=== PATIENT | male | born 1935 | race Caucasian/White ===

== ENCOUNTER 2017-05-10 16:53 | Inpatient (IN) | payer OTHER, MEDICARE ==
[2017-05-10] VITALS (10 sets, daily range): BP systolic 119–169; BP diastolic 50–81; PULSE 64–80; RESP 22–30; TEMP 98–99.1; O2SAT 94–95
[~2017-05-10] VITALS: Ht 172.7 cm; Wt 119.5 kg
[2017-05-10] MEDS ORDERED: SODIUM CHLORIDE 0.9% FLUSH 10 ML FLUSH IVF PRN (18:00)
[2017-05-10] MEDS ORDERED: methylPREDNISolone SOD SUCC 125 MG/2 ML VIAL IVP ONE (18:00)
[2017-05-10] MEDS: RESP: ALBUTEROL 2.5 MG/3 ML NEB (SCH) INH (18:10)
[2017-05-10 18:23] LABS: CHLORIDE 101 MEQ/L (98-107); POTASSIUM 3.3 MEQ/L (3.5-5.1); SODIUM (NA) 136 MEQ/L (136-145)
--- NOTE | 2017-05-10 18:23 | RADRPT ---
EXAM DATE/TIME: 05/10/2017 18:08 [facility] COMPARISON: No previous studies available for comparison. INDICATIONS : Shortness of breath. MEDICAL HISTORY : Diabetes mellitus type II. SURGICAL HISTORY : None. ENCOUNTER: Initial ACUITY: 2 days PAIN SCORE: 0/10 LOCATION: Bilateral cranial FINDINGS: A single AP erect portable view of the chest was obtained and demonstrate streaky perihilar and bibas ilar opacities no focal consolidation or effusion. The heart size is within normal limits. There are atherosclerotic changes in the aorta. Multiple overlying electrocardiogram leads are noted. The bony thorax is intact. CONCLUSION: Streaky opacity in both lungs with no consolidation. The chronicity of the finding is not known. The differential diagnosis includes scarring and fibrosis. Pulmonary edema is less likely . Timbo Cox MD on May 10, 2017 at 18:21 Board Certified Radiologist. This report was verified electronically.
[2017-05-10 18:24] LABS: AUTOMATED NEUTROPHIL # 9.4 TH/MM3 (1.8-7.7); BASOPHIL % 0.2 % (0.0-2.0); EOSINOPHIL # 0.2 TH/MM3 (0-0.4); EOSINOPHIL % 1.9 % (0.0-4.0); HEMATOCRIT 36.5 % (39.0-51.0); LYMPH % 9.1 % (9.0-44.0); MEAN CELL VOLUME 88.2 FL (80.0-100.0); MEAN CORPUSCULAR HEMOGLOBIN 29.4 PG (27.0-34.0); MEAN CORPUSCULAR HGB CONC 33.3 % (32.0-36.0); MONO % 6.2 % (0.0-8.0); NEUT % 82.6 % (16.0-70.0); PLATELET COUNT 302 TH/MM3 (150-450); RED BLOOD COUNT 4.14 MIL/MM3 (4.50-5.90); RED CELL DISTRIBUTION WIDTH 13.4 % (11.6-17.2); WHITE BLOOD COUNT 11.3 TH/MM3 (4.0-11.0)
[2017-05-10] MEDS ORDERED: DOXA4TAB3 PO (18:25)
[2017-05-10] MEDS ORDERED: GEMF600T PO (18:25)
[2017-05-10] MEDS ORDERED: CLAR10CA3 PO (18:25)
[2017-05-10] MEDS ORDERED: LOSA100T3 PO (18:25)
[2017-05-10] MEDS ORDERED: AMLO10TA2 PO (18:25)
[2017-05-10] MEDS ORDERED: ATEN25TA PO (18:25)
[2017-05-10] MEDS ORDERED: METF500T PO (18:25)
[2017-05-10 18:27] LABS: ANION GAP 12 MEQ/L (5-15); BICARBONATE 22.8 MEQ/L (21.0-32.0); BLOOD UREA NITROGEN 22 MG/DL (7-18); MAGNESIUM 2.2 MG/DL (1.5-2.5)
[2017-05-10 18:30] LABS: ALT (GPT) 23 U/L (12-78); AST (GOT) 27 U/L (15-37); GLOMERULAR FILTRATION RATE 79 ML/MIN (>89)
[2017-05-10] MEDS ORDERED: POTASSIUM CHLORIDE 20 MEQ CONTROLLED RELEASE TAB PO ONE (18:30)
[2017-05-10 18:31] LABS: TOTAL BILIRUBIN ADULT 0.4 MG/DL (0.2-1.0)
[2017-05-10 18:33] LABS: ALKALINE PHOSPHATASE 47 U/L (45-117)
[2017-05-10 18:37] LABS: HEMO FLAGS DIFF FINAL
[2017-05-10] MEDS ORDERED: IOHEXOL 350 MG/ML 10 ML VIAL (for RAD DIAG) IVCONTRAST ONE (19:05)
--- NOTE | 2017-05-10 19:28 | PD ---
HPI Chief Complaint: Respiratory Symptoms Time Seen by Provider: 17:40 Travel History International Travel<30 days: No Contact w/Intl Traveler<30days: No Traveled to known affect area: No History of Present Illness HPI This 81-year-old male is complaining of shortness of breath for 6 or 7 days. His been getting progressively worse. He has a dry cough. He has no history of heart disease. He stopped smoking in 2004. He had pulmonary function tests last year which showed a mild obstructive pattern. He is not aware of fever or chills. He does have a history of diabetes. He has not been having any chest pain. He noted any edema. He has not had trouble breathing before [facility] Past Medical History Diabetes: Yes Patient Takes Glucophage: Yes Diminished Hearing: Yes (BILATERAL) Hypertension: Yes Respiratory: Yes (ALLERGIES) Influenza Vaccination: No Past Surgical History Tonsillectomy: Yes Social History Alcohol Use: No Tobacco Use: No Substance Use: No Allergies-Medications (Allergen,Severity, Reaction): Coded Allergies: No Known Allergies (Verified , 05/10/17) Reported Meds & Prescriptions Reported Meds & Active Scripts Active Reported Claritin (Loratadine) 10 Mg Cap 10 Mg PO DAILY Doxazosin (Doxazosin Mesylate) 4 Mg Tab 4 Mg PO HS Amlodipine (Amlodipine Besylate) 10 Mg Tab 10 Mg PO DAILY Atenolol 25 Mg Tab 12.5 Mg PO BID Metformin (Metformin HCl) 500 Mg Tab 500 Mg PO BIDPC With meals Losartan-Hydrochlorothiazide 100-12.5 Mg Tab 1 Tab PO DAILY Gemfibrozil 600 Mg Tab 600 Mg PO BIDAC Take 30 minutes prior to breakfast and dinner. Review of Systems General / Constitutional: No: Fever, Chills Eyes: No: Diploplia, Blurred Vision HENT: No: Headaches, Vertigo Cardiovascular: No: Chest Pain or Discomfort Respiratory: Positive: Cough, Shortness of Breath Gastrointestinal: No: Nausea, Vomiting Genitourinary: No: Frequency, Dysuria Musculoskeletal: No: Myalgias, Arthralgias Skin: No Rash Endocrine: No: Heat Intolerance Hematologic/Lymphatic: No: Easy Bruising Physical Exam Narrative GENERAL: Well-developed female with dyspnea. He has grunting respirations SKIN: Focused skin assessment warm/dry. HEAD: Atraumatic. Normocephalic. EYES: Pupils equal and round. No scleral icterus. No injection or drainage. ENT: No nasal bleeding or discharge. Mucous membranes pink and moist. NECK: Trachea midline. No JVD. CARDIOVASCULAR: Regular rate and rhythm. No murmur appreciated. RESPIRATORY: accessory muscle use. He has scattered rales bilaterally. Breath sounds equal bilaterally. GASTROINTESTINAL: Abdomen soft, non-tender, nondistended. Hepatic and splenic margins not palpable. MUSCULOSKELETAL: No obvious deformities. No clubbing. No cyanosis. Trace edema. NEUROLOGICAL: Awake and alert. No obvious cranial nerve deficits. Motor grossly within normal limits. Normal speech. PSYCHIATRIC: Appropriate mood and affect; insight and judgment normal. Data Data Last Documented VS Vital Signs Date Time Temp Pulse Resp B/P (MAP) Pulse Ox O2 Delivery O2 Flow Rate FiO2 05/10/17 20:15 74 24 153/81 (105) 95 Nasal Cannula 2.00 05/10/17 19:15 98.9 Orders Orders Complete Blood Count With Diff (05/10/17 17:54) Comprehensive Metabolic Panel (05/10/17 17:54) B-Type Natriuretic Peptide (05/10/17 17:54) Magnesium (Mg) (05/10/17 17:54) Troponin I (05/10/17 17:54) Electrocardiogram (05/10/17 17:54) Chest, Single Ap (05/10/17 17:54) Sodium Chloride 0.9% Flush (Ns Flush) (05/10/17 18:00) Methylprednisolone So Succ Inj (Solumedr (05/10/17 18:00) Albuterol Neb (Albuterol Neb) (05/10/17 18:00) Potassium Chloride (Kcl) (05/10/17 18:30) Ct Pulmonary Angiogram (05/10/17 18:42) Iohexol 350 Inj (Omnipaque 350 Inj) (05/10/17 19:05) Blood Culture (05/10/17 19:29) Al-Mag Hy-Si 40-40-4 Mg/Ml Liq (Mag-Al P (05/10/17 19:45) Acetaminophen (Tylenol) (05/10/17 19:45) Labs Laboratory Tests Test 05/10/17 17:45 White Blood Count 11.3 TH/MM3 Red Blood Count 4.14 MIL/MM3 Hemoglobin 12.2 GM/DL Hematocrit 36.5 % Mean Corpuscular Volume 88.2 FL Mean Corpuscular Hemoglobin 29.4 PG Mean Corpuscular Hemoglobin Concent 33.3 % Red Cell Distribution Width 13.4 % Platelet Count 302 TH/MM3 Mean Platelet Volume 9.0 FL Neutrophils (%) (Auto) 82.6 % Lymphocytes (%) (Auto) 9.1 % Monocytes (%) (Auto) 6.2 % Eosinophils (%) (Auto) 1.9 % Basophils (%) (Auto) 0.2 % Neutrophils # (Auto) 9.4 TH/MM3 Lymphocytes # (Auto) 1.0 TH/MM3 Monocytes # (Auto) 0.7 TH/MM3 Eosinophils # (Auto) 0.2 TH/MM3 Basophils # (Auto) 0.0 TH/MM3 CBC Comment DIFF FINAL Differential Comment Blood Urea Nitrogen 22 MG/DL Creatinine 0.92 MG/DL Random Glucose 157 MG/DL Total Protein 7.3 GM/DL Albumin 3.1 GM/DL Calcium Level 9.4 MG/DL Magnesium Level 2.2 MG/DL Alkaline Phosphatase 47 U/L Aspartate Amino Transf (AST/SGOT) 27 U/L Alanine Aminotransferase (ALT/SGPT) 23 U/L Total Bilirubin 0.4 MG/DL Sodium Level 136 MEQ/L Potassium Level 3.3 MEQ/L Chloride Level 101 MEQ/L Carbon Dioxide Level 22.8 MEQ/L Anion Gap 12 MEQ/L Estimat Glomerular Filtration Rate 79 ML/MIN Troponin I LESS THAN 0.02 NG/ML B-Type Natriuretic Peptide 99 PG/ML MDM Medical Decision Making Medical Screen Exam Complete: Yes Emergency Medical Condition: Yes Medical Record Reviewed: Yes Differential Diagnosis Differential includes pneumonia, CHF, COPD Narrative Course Chest x-ray shows streaky opacity in both lungs with no consolidation. Chronicity is not known. Differential is thought to include scarring and fibrosis, pulmonary edema less likely she continued to be symptomatic with grunting respirations. He did not respond well to DuoNeb nebs and Solu-Medrol. A CTA has been ordered to assess for PE and to further define the opacity seen on the chest x-ray. CT scan shows numerous patchy areas of consolidation seen throughout both lungs which are thought to represent inflammatory/ infectious process such as bronchial pneumonia. They are nonspecific however Diagnosis Primary Impression: Pneumonia Qualified Codes: J18.9 - Pneumonia, unspecified organism Admitting Information Admitting Physician Requests: Admit Gael Morales MD May 10, 2017 19:28
[2017-05-10] MEDS ORDERED: ACETAMINOPHEN 500 MG CPLT PO ONE (19:45)
[2017-05-10] MEDS ORDERED: ALUMINUM/MAGNESIUM/SIMETH 30 ML CUP PO ONE (19:45)
--- NOTE | 2017-05-10 20:28 | RADRPT ---
EXAM DATE/TIME: 05/10/2017 18:58 [facility] COMPARISON: No previous studies available for comparison. INDICATIONS : Short of breath. IV CONTRAST: 75 cc Omnipaque 350 (iohexol) IV RADIATION DOSE: 20.29 CTDIvol (mGy) ; Patient motion MEDICAL HISTORY : Hypertension. Diabetes mellitus type 2. SURGICAL HISTORY : None. ENCOUNTER: Initial ACUITY: 2 weeks PAIN SCALE: 2/10 LOCATION: Bilateral chest TECHNIQUE: Volumetric scanning of the chest was performed using a pulmonary embolism protocol MIP images were re constructed. Using automated exposure control and adjustment of the mA and/or kV according to patien t size, radiation dose was kept as low as reasonably achievable to obtain optimal diagnostic quality images. DICOM format image data is available electronically for review and comparison. Follow-up recommendations for detected pulmonary nodules are based at a minimum on nodule size and pa tient risk factors according to Fleischner Society Guidelines. FINDINGS: No pulmonary embolus is seen. There are numerous patchy areas of consolidation seen scattered throug hout the lungs bilaterally. No significant pleural effusion is seen. There are mildly prominent lym ph nodes seen throughout the mediastinum. None of these appear to measure significantly more than 1 cm in size. There are small lymph nodes seen in the hilar regions bilaterally. Coronary artery calci fications are present. CONCLUSION: 1. No pulmonary embolus. 2. Numerous patchy areas of consolidation seen throughout both lungs. These likely represent inflamm atory /infectious processes such as bronchial pneumonia. They are nonspecific however. Serjio Arredondo MD on May 10, 2017 at 20:11 Board Certified Radiologist. This report was verified electronically.
[2017-05-10] MEDS ORDERED: cefTRIAXone INJ 1,000 MG in SODIUM CHLORIDE 0.9% INJ 100 ML IV ONE (20:45)
[2017-05-10] MEDS ORDERED: AZITHROMYCIN INJ 500 MG in SODIUM CHLOR 0.9% 250 ML INJ 250 ML IV ONE (20:45)
[2017-05-10] MEDS ORDERED: RESP: ALBUTEROL 2.5 MG/IPRATROPIUM 0.5 MG NEB (PRN) NEB (21:15)
[2017-05-10] MEDS ORDERED: NALOXONE HCL 0.4 MG/ML AMP IV PRN (21:15)
[2017-05-10] MEDS ORDERED: SODIUM CHLORIDE 0.9% FLUSH 10 ML FLUSH IV FLUSH PRN (21:15)
[2017-05-10] MEDS: RESP: ALBUTEROL 2.5 MG/IPRATROPIUM 0.5 MG NEB (SCH) NEB (22:12)
[2017-05-10] MEDS: LEVOFLOXACIN 750 MG PREMIX INJ 150 ML IV SCH (23:31)
[2017-05-11] VITALS (10 sets, daily range): BP systolic 139–168; BP diastolic 64–79; PULSE 59–78; RESP 16–22; TEMP 96.7–98.6; O2SAT 92–97
[2017-05-11] MEDS: RESP: ALBUTEROL 2.5 MG/IPRATROPIUM 0.5 MG NEB (SCH) NEB ×4 (04:53→21:09)
[2017-05-11 06:50] LABS: BASOPHIL # 0.1 TH/MM3 (0-0.2); BASOPHIL % 1.1 % (0.0-2.0); EOSINOPHIL % 0.1 % (0.0-4.0); HEMATOCRIT 36.3 % (39.0-51.0); LYMPHOCYTE # 0.8 TH/MM3 (1.0-4.8); MEAN CELL VOLUME 88.5 FL (80.0-100.0); MEAN CORPUSCULAR HEMOGLOBIN 29.4 PG (27.0-34.0); MEAN CORPUSCULAR HGB CONC 33.2 % (32.0-36.0); MONO % 2.4 % (0.0-8.0); NEUT % 88.4 % (16.0-70.0); PLATELET COUNT 246 TH/MM3 (150-450); RED CELL DISTRIBUTION WIDTH 13.3 % (11.6-17.2); WHITE BLOOD COUNT 10.1 TH/MM3 (4.0-11.0)
[2017-05-11 06:59] LABS: HEMO FLAGS DIFF FINAL
[2017-05-11 07:09] LABS: BICARBONATE 21.9 MEQ/L (21.0-32.0)
[2017-05-11] MEDS: SODIUM CHLORIDE 0.9% FLUSH 10 ML FLUSH IV FLUSH SCH ×2 (09:11→20:22)
[2017-05-11] MEDS ORDERED: NON-FORMULARY DRUG (Losartan-Hydrochlorothiazide 1 TAB) PO SCH (11:30)
[2017-05-11] MEDS ORDERED: DEXTROSE 50% IN WATER 50 ML VIAL(D50) IV PRN (11:30)
[2017-05-11] MEDS ORDERED: GLUCAGON 1 MG/ML VIAL OTHER PRN (11:30)
--- NOTE | 2017-05-11 11:35 | HHI.HP ---
[facility] Ariana Arias MD Admission Diagnosis PNEUMONIA Diagnoses: Chief Complaint: Short of breath Travel History International Travel<30 Days: No Contact w/Intl Traveler <30 Da: No Traveled to Known Affected Are: No History of Present Illness Patient is an 81-year-old former smoker with a 80 pack year history although he quit over the last 15 years. Patient has been short of breath for about a week which has gotten progressively worse. He called his primary care doctor and got a metered-dose inhaler which did not improve his symptoms. Patient has had pulmonary function tests in the past year which did show mild obstructive pattern although the patient says he is not aware of any lung problems. He has diabetes and is taking his medications. He has not had any trouble breathing or resting flat there is no swelling. Patient has been evaluated for likely pneumonia which is positive on his physical exam and on his imaging on my review. EKG is unremarkable. Patient has been admitted to the hospital for pneumonia with likely COPD exacerbation Review of Systems Constitutional: DENIES: Diaphoretic episodes, Fatigue, Fever, Weight gain, Weight loss, Chills, Dizziness, Change in appetite, Night Sweats Endocrine: DENIES: Heat/cold intolerance, Polydipsia, Polyuria, Polyphagia Eyes: DENIES: Blurred vision, Diplopia, Eye inflammation, Eye pain, Vision loss , Photosensitivity, Double Vision Ears, nose, mouth, throat: DENIES: Tinnitus, Hearing loss, Vertigo, Nasal discharge, Oral lesions, Throat pain, Hoarseness, Ear Pain, Running Nose, Epistaxis, Sinus Pain, Toothache, Odynophagia Respiratory: COMPLAINS OF: Cough, Sputum production, Shortness of breath, DENIES: Apneas, Snoring, Wheezing, Hemoptysis Cardiovascular: COMPLAINS OF: Dyspnea on Exertion, DENIES: Chest pain, Palpitations, Syncope, PND, Lower Extremity Edema, Orthopnea, Claudication Gastrointestinal: DENIES: Abdominal pain, Black stools, Bloody stools, Constipation, Diarrhea, Nausea, Vomiting, Difficulty Swallowing, Anorexia Genitourinary: DENIES: Sexual dysfunction, Urinary frequency, Urinary incontinence, Urgency, Hematuria, Dysuria, Nocturia, Penile Discharge, Testicular Pain, Testicular Swelling Musculoskeletal: DENIES: Joint pain, Muscle aches, Stiffness, Joint Swelling, Back pain, Neck pain Integumentary: DENIES: Abnormal pigmentation, Nail changes, Pruritus, Rash Immunologic/allergic: DENIES: Eczema, Urticaria Neurologic: DENIES: Abnormal gait, Headache, Localized weakness, Paresthesias, Seizures, Speech Problems, Tremor, Poor Balance Psychiatric: DENIES: Anxiety, Confusion, Mood changes, Depression, Hallucinations, Agitation, Suicidal Ideation, Homicidal Ideation, Delusions Except as stated in HPI: all other systems reviewed are Neg Past Family Social History Past Medical History Hypertension Diabetes Hyper lipidemia Past Surgical History Tonsils Reported Medications Reviewed in the medical record, no recent antibiotics or steroids Allergies: Coded Allergies: No Known Allergies (Verified , 05/10/17) Active Ordered Medications Reviewed in the medical record Family History Mother at 96, father young in a motor vehicle accident Social History Patient smoked 4 packs a day for 20 years but has quit over the last 15 years, originally from [place], , no alcohol and retired self-employed gentleman Physical Exam Vital Signs Vital Signs Date Time Temp Pulse Resp B/P (MAP) Pulse Ox O2 Delivery O2 Flow Rate FiO2 05/11/17 11:08 95 Nasal Cannula 3.00 05/11/17 08:00 Nasal Cannula 2.00 05/11/17 08:00 98.6 59 18 148/64 (92) 95 05/11/17 04:00 97.7 73 16 144/67 (92) 92 05/11/17 00:00 98.0 78 22 168/79 (108) 94 05/10/17 23:37 77 05/10/17 23:37 94 Nasal Cannula 2.00 05/10/17 23:10 05/10/17 22:15 99.1 72 24 140/50 (80) 95 Nasal Cannula 2.00 05/10/17 22:12 95 Nasal Cannula 3.00 05/10/17 21:15 64 24 143/77 (99) 94 Nasal Cannula 2.00 05/10/17 20:15 74 24 153/81 (105) 95 Nasal Cannula 2.00 05/10/17 19:15 80 28 95 Nasal Cannula 2.00 05/10/17 19:15 98.9 80 28 169/64 (99) 95 Nasal Cannula 2.00 05/10/17 18:28 65 28 142/56 (84) 94 Nasal Cannula 2.00 05/10/17 18:10 94 Nasal Cannula 2.00 05/10/17 17:30 30 94 Nasal Cannula 2.00 05/10/17 17:20 98.8 70 30 119/75 (90) 94 Physical Exam Dyspneic at rest with purse lipped breathing and conversation GENERAL: This is a well-nourished, well-developed patient, in no apparent distress. SKIN: No rashes, ecchymoses or lesions. Cool and dry. HEAD: Atraumatic. Normocephalic. No temporal or scalp tenderness. EYES: Pupils equal round and reactive. Extraocular motions intact. No scleral icterus. No injection or drainage. ENT: Nose without bleeding, purulent drainage or septal hematoma. Throat without erythema, tonsillar hypertrophy or exudate. Uvula midline. Airway patent. NECK: Trachea midline. No JVD or lymphadenopathy. Supple, nontender, no meningeal signs. CARDIOVASCULAR: Regular rate and rhythm without murmurs, gallops, or rubs. RESPIRATORY: Decreased air flow without appreciable wheezes or rhonchi GASTROINTESTINAL: Abdomen soft, non-tender, nondistended. No hepato-splenomegaly , or palpable masses. No guarding. MUSCULOSKELETAL: Extremities without clubbing, cyanosis, or edema. No joint tenderness, effusion, or edema noted. No calf tenderness. Negative Homans sign bilaterally. NEUROLOGICAL: Awake and alert. Cranial nerves II through XII intact. Motor and sensory grossly within normal limits. Five out of 5 muscle strength in all muscle groups. Normal speech. Laboratory Laboratory Tests Test 05/10/17 17:45 05/11/17 05:30 White Blood Count 11.3 10.1 Red Blood Count 4.14 4.10 Hemoglobin 12.2 12.0 Hematocrit 36.5 36.3 Mean Corpuscular Volume 88.2 88.5 Mean Corpuscular Hemoglobin 29.4 29.4 Mean Corpuscular Hemoglobin Concent 33.3 33.2 Red Cell Distribution Width 13.4 13.3 Platelet Count 302 246 Mean Platelet Volume 9.0 9.2 Neutrophils (%) (Auto) 82.6 88.4 Lymphocytes (%) (Auto) 9.1 8.0 Monocytes (%) (Auto) 6.2 2.4 Eosinophils (%) (Auto) 1.9 0.1 Basophils (%) (Auto) 0.2 1.1 Neutrophils # (Auto) 9.4 9.0 Lymphocytes # (Auto) 1.0 0.8 Monocytes # (Auto) 0.7 0.2 Eosinophils # (Auto) 0.2 0.0 Basophils # (Auto) 0.0 0.1 CBC Comment DIFF FINAL DIFF FINAL Differential Comment Blood Urea Nitrogen 22 24 Creatinine 0.92 0.98 Random Glucose 157 275 Total Protein 7.3 Albumin 3.1 Calcium Level 9.4 9.0 Magnesium Level 2.2 Alkaline Phosphatase 47 Aspartate Amino Transf (AST/SGOT) 27 Alanine Aminotransferase (ALT/SGPT) 23 Total Bilirubin 0.4 Sodium Level 136 133 Potassium Level 3.3 4.0 Chloride Level 101 99 Carbon Dioxide Level 22.8 21.9 Anion Gap 12 12 Estimat Glomerular Filtration Rate 79 74 Troponin I LESS THAN 0.02 B-Type Natriuretic Peptide 99 Date/Time Source Procedure Growth Status 05/10/17 19:40 Blood Peripheral Aerobic Blood Culture - Preliminary NO GROWTH IN 1 DAY Resulted 05/10/17 19:40 Blood Peripheral Anaerobic Blood Culture - Preliminary NO GROWTH IN 1 DAY Resulted Result Diagram: 05/11/17 0530 05/11/17 [address] Angiography 05/10/17 184 Signed Impressions: Service Date/Time: April 18:58 - CONCLUSION: 1. No pulmonary embolus. 2. Numerous patchy areas of consolidation seen throughout both lungs. These likely represent inflammatory /infectious processes such as bronchial pneumonia. They are nonspecific however. Serjio Arredondo MD Chest X-Ray 05/10/17 [id number] Signed Impressions: Service Date/Time: April 18:08 - CONCLUSION: Streaky opacity in both lungs with no consolidation. The chronicity of the finding is not known. The differential diagnosis includes scarring and fibrosis. Pulmonary edema is less likely. MD Shauna Light VTE Risk Assessment Caprini VTE Risk Assessment: Mod/High Risk (score >= 2) Caprini Risk Assessment Model Point Value = 1 Point Value = 2 Point Value = 3 Point Value = 5 Age 41-60 Minor surgery BMI > 25 kg/m2 Swollen legs Varicose veins or History of unexplained or recurrent spontaneous Oral contraceptives or hormone replacement Sepsis (< 1 month) Serious lung disease, including pneumonia (< 1 month) Abnormal pulmonary function Acute myocardial infarction Congestive heart failure (< 1 month) History of inflammatory bowel disease Medical patient at bed rest Age 61-74 Arthroscopic surgery Major open surgery (> 45 min) Laparoscopic surgery (> 45 min) Malignancy Confined to bed (> 72 hours) Immobilizing plaster cast Central venous access Age >= 75 History of VTE Family history of VTE Factor V Leiden Prothrombin [id number] Lupus anticoagulant Anticardiolipin antibodies Elevated serum homocysteine Heparin-induced thrombocytopenia Other congenital or acquired thrombophilia Stroke (< 1 month) Elective arthroplasty Hip, pelvis, or leg fracture Acute spinal cord injury (< 1 month) Prophylaxis Regimen Total Risk Factor Score Risk Level Prophylaxis Regimen 0-1 Low Early ambulation 2 Moderate Order ONE of the following: *Sequential Compression Device (SCD) *Heparin 5000 units SQ BID 3-4 Higher Order ONE of the following medications: *Heparin 5000 units SQ TID *Enoxaparin/Lovenox 40 mg SQ daily (WT < 150 kg, CrCl > 30 mL/min) *Enoxaparin/Lovenox 30 mg SQ daily (WT < 150 kg, CrCl > 10-29 mL/min) *Enoxaparin/Lovenox 30 mg SQ BID (WT < 150 kg, CrCl > 30 mL/min) AND/OR *Sequential Compression Device (SCD) 5 or more Highest Order ONE of the following medications: *Heparin 5000 units SQ TID (Preferred with Epidurals) *Enoxaparin/Lovenox 40 mg SQ daily (WT < 150 kg, CrCl > 30 mL/min) *Enoxaparin/Lovenox 30 mg SQ daily (WT < 150 kg, CrCl > 10-29 mL/min) *Enoxaparin/Lovenox 30 mg SQ BID (WT < 150 kg, CrCl > 30 mL/min) AND *Sequential Compression Device (SCD) Assessment and Plan Problem List: (1) DM2 (diabetes mellitus, type 2) ICD Code: E11.9 - Type 2 diabetes mellitus without complications Plan: Hold metformin for now, continue with sliding scale insulin and diabetic diet (2) HTN (hypertension) ICD Code: I10 - Essential (primary) hypertension Plan: Continue home medications (3) Pneumonia ICD Code: J18.9 - Pneumonia, unspecified organism Status: Acute Plan: Continue IV Levaquin, treat mild COPD exacerbation With IV steroids ( transition to oral) continue duo nebs PFTs seen and chart which did show mild obstructive pattern Patient likely need to repeat these once his pneumonia improved Assessment and Plan Plan of care to be determined by Hospital course Code Status Full code Discussed Condition With Patient Physician Certification 2 Midnight Certification Type: Admission for Inpatient Services Order for Inpatient Services The services are ordered in accordance with Medicare regulations or non- Medicare payer requirements, as applicable. In the case of services not specified as inpatient-only, they are appropriately provided as inpatient services in accordance with the 2-midnight benchmark. Estimated LOS (days): 2 days is the estimated time the patient will need to remain in the hospital, assuming treatment plan goals are met and no additional complications. Post-Hospital Plan: Home Problem Qualifiers (1) Pneumonia: Qualified Codes: J18.9 - Pneumonia, unspecified organism Juliana Dee MD May 11, 2017 11:35
[2017-05-11] MEDS: predniSONE 20 MG TAB PO SCH ×2 (12:13→20:21)
[2017-05-11] MEDS: HYDROCHLOROTHIAZIDE 12.5 MG CAP PO SCH (12:14)
[2017-05-11] MEDS: LOSARTAN 50 MG TAB PO SCH (12:14)
[2017-05-11] MEDS: GEMFIBROZIL 600 MG TAB PO SCH ×2 (12:15→16:42)
[2017-05-11] MEDS: ATENOLOL 25 MG TAB PO SCH ×2 (12:16→20:21)
[2017-05-11] MEDS: INSULIN ASPART SUPPLEMENTAL SCALE SQ SCH ×3 (12:26→21:00)
[2017-05-11] MEDS: HEPARIN SODIUM - SQ 10,000 UNITS/ML VIAL SQ SCH ×2 (13:47→21:47)
[2017-05-11] MEDS ORDERED: DOXAZOSIN MESYLATE 4 MG TAB PO SCH (21:00)
[2017-05-11] MEDS: LEVOFLOXACIN 750 MG PREMIX INJ 150 ML IV SCH (21:47)
[2017-05-12 00:07] VITALS: BP 134/63; PULSE 55; RESP 22; TEMP 97.7; O2SAT 93
--- NOTE | 2017-05-12 01:03 | EKG ---
Date Performed: 05/10/2017 Time Performed: 18:05:36 PTAGE: 81 years EKG: Sinus rhythm MODERATE INTRAVENTRICULAR CONDUCTION DELAY NON-SPECIFIC ST/T WAVE CHANGES NO PREVIOUS TRACING DOCTOR: Cricket Gomez Interpretating Date/Time 05/12/2017 01:02:43
[2017-05-12] MEDS: RESP: ALBUTEROL 2.5 MG/IPRATROPIUM 0.5 MG NEB (SCH) NEB ×2 (03:16→10:18)
[2017-05-12 04:32] VITALS: BP 148/58; PULSE 57; RESP 20; TEMP 98.7; O2SAT 97
[2017-05-12] MEDS: HEPARIN SODIUM - SQ 10,000 UNITS/ML VIAL SQ SCH (06:07)
[2017-05-12] MEDS: GEMFIBROZIL 600 MG TAB PO SCH (06:07)
[2017-05-12 08:00] VITALS: BP 147/61; PULSE 59; RESP 19; TEMP 97.7; O2SAT 95
[2017-05-12] MEDS: predniSONE 20 MG TAB PO SCH (08:34)
[2017-05-12] MEDS: ATENOLOL 25 MG TAB PO SCH (08:34)
[2017-05-12] MEDS: HYDROCHLOROTHIAZIDE 12.5 MG CAP PO SCH (08:35)
[2017-05-12] MEDS: LOSARTAN 50 MG TAB PO SCH (08:35)
[2017-05-12] MEDS: INSULIN ASPART SUPPLEMENTAL SCALE SQ SCH (08:40)
[2017-05-12] MEDS: SODIUM CHLORIDE 0.9% FLUSH 10 ML FLUSH IV FLUSH SCH (08:40)
--- NOTE | 2017-05-12 09:33 | HHI.DCPOC ---
Discharge Care Plan Diagnosis: (1) Pneumonia Goals to Promote Your Health * To prevent worsening of your condition and complications * To maintain your health at the optimal level Directions to Meet Your Goals Take your medications as prescribed Follow your dietary instruction Follow activity as directed Keep your appointments as scheduled Take your immunizations and boosters as scheduled If your symptoms worsen call your PCP, if no PCP go to Urgent Care Center or Emergency Room Smoking is Dangerous to Your Health. Avoid second hand smoke Call the 24-hour hour crisis hotline for domestic abuse at Juliana Dee MD May 12, 2017 09:33
[2017-05-12] MEDS ORDERED: IPRA0.02 NEB (09:36)
[2017-05-12] MEDS ORDERED: NEBULIZER1 MI1 (09:36)
[2017-05-12] MEDS ORDERED: PRED20 PO (09:36)
[2017-05-12] MEDS ORDERED: LEVO500T8 PO (09:36)
[2017-05-12] MEDS ORDERED: VENTAER INH (09:36)
--- NOTE | 2017-05-12 09:40 | HHI.DS ---
Discharge Summary Admission Date May 10, 2017 at 21:08 Discharge Date: May 12, 2017 Admitting Diagnosis PNEUMONIA (1) DM2 (diabetes mellitus, type 2) ICD Code: E11.9 - Type 2 diabetes mellitus without complications (2) HTN (hypertension) ICD Code: I10 - Essential (primary) hypertension (3) Pneumonia ICD Code: J18.9 - Pneumonia, unspecified organism Status: Acute Procedures none Brief History - From Admission Patient is an 81-year-old former smoker with a 80 pack year history although he quit over the last 15 years. Patient has been short of breath for about a week which has gotten progressively worse. He called his primary care doctor and got a metered-dose inhaler which did not improve his symptoms. Patient has had pulmonary function tests in the past year which did show mild obstructive pattern although the patient says he is not aware of any lung problems. He has diabetes and is taking his medications. He has not had any trouble breathing or resting flat there is no swelling. Patient has been evaluated for likely pneumonia which is positive on his physical exam and on his imaging on my review. EKG is unremarkable. Patient has been admitted to the hospital for pneumonia with likely COPD exacerbation CBC/BMP: 05/11/17 0530 05/11/17 0530 Significant Findings Laboratory Tests Test 05/10/17 17:45 05/11/17 05:30 White Blood Count 11.3 TH/MM3 (4.0-11.0) Red Blood Count 4.14 MIL/MM3 (4.50-5.90) 4.10 MIL/MM3 (4.50-5.90) Hemoglobin 12.2 GM/DL (13.0-17.0) 12.0 GM/DL (13.0-17.0) Hematocrit 36.5 % (39.0-51.0) 36.3 % (39.0-51.0) Neutrophils (%) (Auto) 82.6 % (16.0-70.0) 88.4 % (16.0-70.0) Neutrophils # (Auto) 9.4 TH/MM3 (1.8-7.7) 9.0 TH/MM3 (1.8-7.7) Blood Urea Nitrogen 22 MG/DL (7-18) 24 MG/DL (7-18) Random Glucose 157 MG/DL (74-106) 275 MG/DL (74-106) Albumin 3.1 GM/DL (3.4-5.0) Potassium Level 3.3 MEQ/L (3.5-5.1) Estimat Glomerular Filtration Rate 79 ML/MIN (>89) 74 ML/MIN (>89) Troponin I LESS THAN 0.02 NG/ML Lymphocytes (%) (Auto) 8.0 % (9.0-44.0) Lymphocytes # (Auto) 0.8 TH/MM3 (1.0-4.8) Sodium Level 133 MEQ/L (136-145) Imaging Last Impressions CT Angiography 05/10/17 1842 Signed Impressions: Service Date/Time: , May 10, 2017 18:58 - CONCLUSION: 1. No pulmonary embolus. 2. Numerous patchy areas of consolidation seen throughout both lungs. These likely represent inflammatory /infectious processes such as bronchial pneumonia. They are nonspecific however. Serjio Arredondo MD Chest X-Ray 05/10/17 1754 Signed Impressions: Service Date/Time: , May 10, 2017 18:08 - CONCLUSION: Streaky opacity in both lungs with no consolidation. The chronicity of the finding is not known. The differential diagnosis includes scarring and fibrosis. Pulmonary edema is less likely. Timbo Cox MD PE at Discharge GENERAL: This is a well-nourished, well-developed patient, in no apparent distress. CARDIOVASCULAR: Regular rate and rhythm without murmurs, gallops, or rubs. RESPIRATORY: Clear to auscultation. Breath sounds equal bilaterally. No wheezes , rales, or rhonchi. GASTROINTESTINAL: Abdomen soft, non-tender, nondistended. Normal active bowel sounds MUSCULOSKELETAL: Extremities without clubbing, cyanosis, or edema. NEURO: Alert & Oriented x4 to person, place, time, situation. Moves all ext x4 Pt update on day of discharge None better today. Breathing better and patient education provided. Walk test pending at discharge Hospital Course She was seen and treated for pneumonia and COPD exacerbation. He was given steroids and oxygen has appeared to improve. Patient also has a poorly function tests available from about a year ago which show obstruction. Patient clinically appears to have chronic obstructive pulmonary disease with 20 further evaluation. This time the patient's treated for pneumonia and given medications appropriate for obstruction and we'll continue to follow with his primary care doctor with outpatient referral for pulmonology Pt Condition on Discharge: Good Discharge Disposition: Discharge Home Discharge Time: > 30 minutes Discharge Instructions DIET: Follow Instructions for: Diabetic Diet Activities you can perform: Regular-No Restrictions Follow up Referrals: PCP Follow-up - 1 Week New Medications: Albuterol 18 GM Inh (Ventolin Hfa 18 GM Inh) 90 Mcg/Act Aer 2 PUFF INH Q4H PRN for SHORTNESS OF BREATH, #1 INHALER 0 Refills Ipratropium Neb (Ipratropium Neb) 0.5 Mg/2.5 Ml Amp 0.5 MG NEB Q6HR NEB PRN for SHORTNESS OF BREATH, #120 NEBULE 0 Refills Levofloxacin (Levofloxacin) 500 Mg Tablet 500 MG PO DAILY for Infection, #6 TAB 0 Refills Nebulizer (Nebulizer) 1 Mis Mis EA .ROUTE DIRECTED for Breathing Treatment, #1 0 Refills Prednisone (Prednisone) 20 Mg Tab 20 MG PO DIRECTED for Inflammation, #12 TAB 0 Refills 20 MG twice a day x 3 days, then 20 MG daily x 3 days, then 10 MG daily x 3 days Continued Medications: Amlodipine (Amlodipine) 10 Mg Tab 10 MG PO DAILY for Blood Pressure Management, #30 TAB 0 Refills Atenolol (Atenolol) 25 Mg Tab 12.5 MG PO BID for Blood Pressure Management, #60 TAB 0 Refills Doxazosin (Doxazosin) 4 Mg Tab 4 MG PO HS, TAB Gemfibrozil (Gemfibrozil) 600 Mg Tab 600 MG PO BIDAC, #60 TAB 0 Refills Take 30 minutes prior to breakfast and dinner. Loratadine (Claritin) 10 Mg Cap 10 MG PO DAILY for Allergy Management, CAP 0 Refills Losartan-Hydrochlorothiazide (Losartan-Hydrochlorothiazide) 100-12.5 Mg Tab 1 TAB PO DAILY for Blood Pressure Management, #30 TAB 0 Refills Metformin (Metformin) 500 Mg Tab 500 MG PO BIDPC for Blood Sugar Management, #60 TAB 0 Refills With Juliana Moses MD May 12, 2017 09:40
[2017-05-12 10:21] VITALS: O2SAT 94
== END 2017-05-12 12:47 | disposition home or self-care (01) | DRG 190 ==
LOC: PHED 16:53 → PHEDA 21:08 → PH3B 23:11
PROVIDERS: ADMIT Hospitalist; ATTEND Hospitalist
DX: J44.0 Chronic obstructive pulmonary disease with (acute) lower respiratory infection (principal); J18.9 Pneumonia, unspecified organism; J44.1 Chronic obstructive pulmonary disease with (acute) exacerbation; E11.9 Type 2 diabetes mellitus without complications; I10 Essential (primary) hypertension; H91.93 Unspecified hearing loss, bilateral; E78.5 Hyperlipidemia, unspecified; Z79.84 Long term (current) use of oral hypoglycemic drugs; Z87.891 Personal history of nicotine dependence
CPT/HCPCS: 71010; 71275; 80048; 80053; 82948; 83735; 83880; 84484; 85025; 87040; 93005; 94620; 94640; 94664; 96365; 96375; J0456; J0696; J1644; J1815; J1956; J2930; J7050; J7512; J7613; Q9967

== ENCOUNTER 2018-09-06 13:41 | Inpatient (IN) ==
[2018-09-06] MEDS ORDERED: MethylPREDNISolone Sod Succinate Inj 125 MG/2 ML Vial IV.PUSH ONE (14:02)
--- NOTE | 2018-09-06 14:09 | ED ---
HPI General Chief complaint: Respiratory Symptoms Stated complaint: cough/shoulders ache x 3 days Source: patient Mode of arrival: ambulatory Limitations: no limitations History of Present Illness HPI narrative: This 83-year-old male is complaining of cough and congestion. He feels like he has had a fever. He has been sick for the last day and a half. He has a history of COPD and has been admitted for his COPD in the past. He is not aware of any history of heart disease. He was a smoker but has not smoked for many years. He does have diabetes for which he is on metformin. He is short of breath today. He says his legs have been swollen for several months the right worse than the left. He has not had any investigation of this Related Data Home Medications Medication Instructions Recorded Confirmed amlodipine 10 mg PO DAILY 09/06/18 09/06/18 atenolol 25 mg PO BID 09/06/18 09/06/18 atorvastatin 10 mg PO DAILY 09/06/18 09/06/18 beclomethasone dipropionate [Qvar 1 puff INHALATION BID 09/06/18 09/06/18 RediHaler] doxazosin 4 mg PO DAILY 09/06/18 09/06/18 hydrochlorothiazide 25 mg PO DAILY 09/06/18 09/06/18 metformin 1,000 mg PO DAILY 09/06/18 09/06/18 metformin 500 mg PO QPM 09/06/18 09/06/18 Allergies Allergy/AdvReac Type Severity Reaction Status Date / Time No Known Allergies Allergy Verified 09/06/18 13:53 Review of Systems ROS: all other systems reviewed are negative [facility] Medical History Medical History History of COPD (Acute) History of high cholesterol (Acute) Hx of diabetes mellitus (Acute) Hx of primary hypertension (Acute) Surgical History Surgical History Hx of tonsillectomy (Acute) Social History Social History Substance History: No History of Abuse Second Hand Smoke Exposure: No Smoking Status: Former smoker Tobacco Type: Cigarettes How Often Do You Have a Drink Containing Alcohol: Never Recent Travel in [facility] within the Last 8 Weeks: No Recent Out of Country Travel within the Last 8 Weeks: No Exam Narrative Exam Narrative: GENERAL: Developed male in mild respiratory distress SKIN: Focused skin assessment warm/dry. HEAD: Atraumatic. Normocephalic. EYES: Pupils equal and round. No scleral icterus. No injection or drainage. ENT: No nasal bleeding or discharge. Mucous membranes pink and moist. NECK: Trachea midline. No JVD. CARDIOVASCULAR: Regular rate and rhythm. No murmur appreciated. RESPIRATORY: Accessory muscle use. There is some coarse rales in the right midlung field. There are occasional rhonchi GASTROINTESTINAL: Abdomen soft, non-tender, nondistended. Hepatic and splenic margins not palpable. MUSCULOSKELETAL: No obvious deformities. No clubbing. No cyanosis. Bilateral edema right greater than left NEUROLOGICAL: Awake and alert. No obvious cranial nerve deficits. Motor grossly within normal limits. Normal speech. PSYCHIATRIC: Appropriate mood and affect; insight and judgment normal. Course Initial Documented Vital Signs Temperature 99.5 F 09/06/18 13:51 Pulse Rate 77 09/06/18 13:51 Respiratory Rate 18 09/06/18 13:51 Blood Pressure 153/67 H 09/06/18 13:51 Pulse Oximetry 91 L 09/06/18 13:51 Last Documented Vital Signs Temperature 99.5 F 09/06/18 13:51 Pulse Rate 69 09/06/18 14:23 Respiratory Rate 26 H 09/06/18 14:23 Blood Pressure 153/67 H 09/06/18 13:51 Pulse Oximetry 92 L 09/06/18 14:29 Medical Decision Making [facility] Narrative Medical decision making narrative: Chest x-ray shows cardiomegaly. There is some bibasilar streakiness consistent with atelectasis or early infiltrate. His white count is 17,000 and his lactic acid level is 2.5. He has been given IV fluids and has been started on Rocephin and Zithromax. His oxygen saturation on arrival was 92% on 2 L. Think the patient needs admission for initial treatment of suspected pneumonia and COPD exacerbation Medical Screen Exam Complete: Yes Emergency Medical Condition: Yes Differential Diagnosis Differential Diagnosis: Differential includes COPD exacerbation, pneumonia, CHF Lab Data Result diagrams: 09/06/18 14:10 09/06/18 14:10 Lab Results 09/06/18 09/06/18 09/06/18 Range/Units 14:00 14:10 14:10 CBC w Diff Slide review pending WBC 17.4 H (4.0-11.0) th/mm3 RBC 4.78 (4.50-5.90) mil/mm3 Hgb 13.7 (13.0-17.0) gm/dL Hct 40.1 (39.0-51.0) % MCV 84.0 (80.0-100.0) fL MCH 28.6 (27.0-34.0) pg MCHC 34.0 (32.0-36.0) % RDW 14.2 (11.6-17.2) % Plt Count 155 (150-450) th/mm3 MPV 9.2 (7.0-11.0) fL Neut % (Auto) 88.3 H (16.0-70.0) % Lymph % (Auto) 3.5 L (9.0-44.0) % Conway % (Auto) 4.8 (0.0-8.0) % Eos % (Auto) 0.0 (0.0-4.0) % Baso % (Auto) 3.4 H (0.0-2.0) % Neut # (Auto) 15.4 H (1.8-7.7) th/mm3 Lymph # (Auto) 0.6 L (1.0-4.8) th/mm3 Conway # (Auto) 0.8 (0.0-0.9) th/mm3 Eos # (Auto) 0.0 (0.0-0.4) th/mm3 Baso # (Auto) 0.6 H (0.0-0.2) th/mm3 WBC Differential . Diff Scan Auto diff confirmed Differential Comment . Sodium 136 (136-145) meq/L Potassium 3.5 (3.5-5.1) meq/L Chloride 100 (98-107) meq/L Carbon Dioxide 23.5 (21.0-32.0) meq/L Anion Gap 13 (5-15) meq/L BUN 14 (7-18) mg/dL Creatinine 0.99 (0.60-1.30) mg/dL Estimated GFR 72 L (>89) mL/min Random Glucose 169 H (74-106) mg/dL Lactic Acid 2.5 H (0.4-2.0) mmol/L Calcium 8.8 (8.5-10.1) mg/dL Total Bilirubin 0.9 (0.2-1.0) mg/dL AST 11 L (15-37) U/L ALT 21 (12-78) U/L Alkaline Phosphatase 49 (45-117) U/L Troponin I Less than 0.02 L (0.02-0.05) ng/mL B-Natriuretic Peptide (0-100) pg/mL Total Protein 6.8 (6.4-8.2) g/dL Albumin 3.8 (3.4-5.0) g/dL 09/06/18 Range/Units 14:10 CBC w Diff WBC (4.0-11.0) th/mm3 RBC (4.50-5.90) mil/mm3 Hgb (13.0-17.0) gm/dL Hct (39.0-51.0) % MCV (80.0-100.0) fL MCH (27.0-34.0) pg MCHC (32.0-36.0) % RDW (11.6-17.2) % Plt Count (150-450) th/mm3 MPV (7.0-11.0) fL Neut % (Auto) (16.0-70.0) % Lymph % (Auto) (9.0-44.0) % Conway % (Auto) (0.0-8.0) % Eos % (Auto) (0.0-4.0) % Baso % (Auto) (0.0-2.0) % Neut # (Auto) (1.8-7.7) th/mm3 Lymph # (Auto) (1.0-4.8) th/mm3 Conway # (Auto) (0.0-0.9) th/mm3 Eos # (Auto) (0.0-0.4) th/mm3 Baso # (Auto) (0.0-0.2) th/mm3 WBC Differential Diff Scan Differential Comment Sodium (136-145) meq/L Potassium (3.5-5.1) meq/L Chloride (98-107) meq/L Carbon Dioxide (21.0-32.0) meq/L Anion Gap (5-15) meq/L BUN (7-18) mg/dL Creatinine (0.60-1.30) mg/dL Estimated GFR (>89) mL/min Random Glucose (74-106) mg/dL Lactic Acid (0.4-2.0) mmol/L Calcium (8.5-10.1) mg/dL Total Bilirubin (0.2-1.0) mg/dL AST (15-37) U/L ALT (12-78) U/L Alkaline Phosphatase (45-117) U/L Troponin I (0.02-0.05) ng/mL B-Natriuretic Peptide 80 (0-100) pg/mL Total Protein (6.4-8.2) g/dL Albumin (3.4-5.0) g/dL Imaging Data Radiologist's impression: Chest X-Ray 09/06/18 14:00 CONCLUSION: 1. Bibasilar streakiness is noted consistent with atelectasis/or mild infiltrates.Bibasilar streakiness is noted consistent with atelectasis/or mild infiltrates. 2. Cardiomegaly. Discharge Plan Discharge Disposition Patient Disposition: ED Admit(ED Internal Use Only) Discharge Condition Condition: Stable Discharge Details Diagnosis: Pneumonia, Acute exacerbation of chronic obstructive pulmonary disease (COPD) Physicians Team ED Provider: AFTAB DE LUNA Primary Care Provider: Ariana Arias Rxs /Orders / Referrals /Forms Prescriptions: No Action atenolol 25 mg Tablet 25 mg PO BID RF: 0 hydrochlorothiazide 25 mg Tablet 25 mg PO DAILY RF: 0 atorvastatin 10 mg Tablet 10 mg PO DAILY RF: 0 amlodipine 10 mg Tablet 10 mg PO DAILY RF: 0 metformin 1,000 mg Tablet 1,000 mg PO DAILY RF: 0 doxazosin 4 mg Tablet 4 mg PO DAILY RF: 0 metformin 500 mg Tablet Extended Release 24 Hr 500 mg PO QPM RF: 0 beclomethasone dipropionate [Qvar RediHaler] 80 mcg/actuation Hfa Aerosol Breath Activated 1 puff INHALATION BID RF: 0 Status ED Status: With Nurse
[2018-09-06 14:24] LABS: Baso # (Auto) 0.6 th/mm3 (0.0-0.2); Baso % (Auto) 3.4 % (0.0-2.0); Hematocrit 40.1 % (39.0-51.0); Hemoglobin 13.7 gm/dL (13.0-17.0); Lymph # (Auto) 0.6 th/mm3 (1.0-4.8); Lymph % (Auto) 3.5 % (9.0-44.0); Mean Corpuscular Hemoglobin 28.6 pg (27.0-34.0); Mean Platelet Volume 9.2 fL (7.0-11.0); Mono # (Auto) 0.8 th/mm3 (0.0-0.9); Mono % (Auto) 4.8 % (0.0-8.0); Neut # (Auto) 15.4 th/mm3 (1.8-7.7); Neut % (Auto) 88.3 % (16.0-70.0); Platelet Count 155 th/mm3 (150-450); Red Blood Count 4.78 mil/mm3 (4.50-5.90); Red Cell Distribution Width 14.2 % (11.6-17.2); White Blood Count 17.4 th/mm3 (4.0-11.0)
[2018-09-06 14:25] LABS: Chloride 100 meq/L (98-107); Potassium 3.5 meq/L (3.5-5.1); Sodium 136 meq/L (136-145)
[2018-09-06 14:28] LABS: Albumin 3.8 g/dL (3.4-5.0); Anion Gap 13 meq/L (5-15); Calcium 8.8 mg/dL (8.5-10.1); Carbon Dioxide 23.5 meq/L (21.0-32.0); Glucose,Random 169 mg/dL (74-106)
[2018-09-06 14:29] LABS: Blood Urea Nitrogen 14 mg/dL (7-18)
[2018-09-06 14:31] LABS: Alanine Aminotransferase 21 U/L (12-78)
[2018-09-06 14:32] LABS: Aspartate Aminotransferase 11 U/L (15-37); Glomerular Filtration Rate 72 mL/min (>89)
[2018-09-06 14:33] LABS: Total Protein 6.8 g/dL (6.4-8.2)
[2018-09-06 14:34] LABS: Alkaline Phosphatase 49 U/L (45-117)
[2018-09-06] MEDS ORDERED: Sod Chloride 0.9% Inj 1,000 ML IV.SIG SCH ×2 (15:00)
--- NOTE | 2018-09-06 15:03 | XR ---
EXAM DATE: 09/06/2018 2:59 PM EST AGE/SEX: 83 years / Male INDICATIONS: Cough, congestion, fever x 2 days. CLINICAL DATA: This is the patient's initial encounter. Patient reports that signs and symptoms have been present for 2 days and indicates a pain score of 0/10. MEDICAL/SURGICAL HISTORY: Chronic obstructive pulmonary disease. Hypertension. Hypercholester olemia. Diabetes. Tonsillectomy. COMPARISON: POI, XR CHEST PA AND LAT, 08/19/2018. . FINDINGS: The heart is enlarged. Bibasilar streakiness is noted consistent with atelectasis/or mild infiltrates . CONCLUSION: 1. Bibasilar streakiness is noted consistent with atelectasis/or mild infiltrates.Bibasilar streakin ess is noted consistent with atelectasis/or mild infiltrates. 2. Cardiomegaly. Electronically signed by: Ishmael Pérez MD Board Certified Radiologist 09/06/2018 3:02 PM EST
[2018-09-06] MEDS ORDERED: Acetaminophen 325 MG Tablet PO PRN (15:23)
[2018-09-06] MEDS ORDERED: Dextrose 50% in Water 50 ML Vial IV.PUSH PRN (15:23)
[2018-09-06] MEDS ORDERED: Bisacodyl 10 MG Supp RECTAL PRN (15:23)
[2018-09-06] MEDS: Azithromycin Inj 500 MG in Sodium Chlor 0.9% Inj 250 ML IV.SIG STA ×2 (15:37→16:06)
--- NOTE | 2018-09-06 15:53 | US ---
EXAM DATE: 09/06/2018 3:48 PM EST AGE/SEX: 83 years / Male INDICATIONS: Thrombosis. Shortness of breath. CLINICAL DATA: This is the patient's initial encounter. Patient reports that signs and symptoms have been present for 2 days and indicates a pain score of 0/10. MEDICAL/SURGICAL HISTORY: Chronic obstructive pulmonary disease. Hypertension. Diabetic. Tons illectomy. COMPARISON: No prior exams available for comparison. TECHNIQUE: Venous ultrasound of both lower extremities was performed from the inguinal ligament to t he proximal calf. Real-time, color Doppler and spectral tracing, compression and augmentation techni ques were used. FINDINGS: Right Leg: Normal compression of the deep venous system from the inguinal region to the proximal tee f. No echogenic clot is seen. Normal response of the venous system to augmentation and respiration. T here is a nonspecific soft tissue appearing type mass in the right upper thigh measuring 12.2 x 5.7 c m. There are no prior studies for comparison. Left Leg: Normal compression of the deep venous system from the inguinal region to the proximal calf . No echogenic clot is seen. Normal response of the venous system to augmentation and respiration. Other: None. CONCLUSION: 1. No evidence of DVT. 2. Nonspecific soft mass in the right upper thigh measuring 12.2 x 5.7 cm. This may be a hematoma. R ecommend correlation with patient's history and physical exam. Electronically signed by: Jabari Swain MD Board Certified Radiologist 09/06/2018 3:52 PM EST
--- NOTE | 2018-09-06 18:50 | P.HPIM ---
History of Present Illness Service: Hospitalist Primary Care Physician: Ariana Arias MD Chief Complaint: Short of breath History of Present Illness: Patient is an 83-year-old male who presents to the emergency room with a complaint of cough and congestion. Past medical history includes COPD, hyperlipidemia, hypertension, BPH and diabetes. He denies any history of heart disease. He cannot tell me what medications he takes -tells me he takes whatever pills his puts in the box. He does have an additional complaint of swelling in his legs that is been going on for about 6 months. No specific calf pain or other leg pain. He is a former smoker. Has had past admissions for COPD. Says he was on inhalers in the past but he stopped using them because they gave him cramps. His doctor has recently given him new ones but he has not really started using them. Patient tells me that his current shortness of breath is worse than usual. He denies any chest pain. Thinks he might of had a fever at home. No nausea vomiting or diarrhea. Has had an intermittent cough with some sputum production. Inpatient Certification Inpatient Certification: I certify that the inpatient services were ordered in accordance with Medicare regulations governing the order. This includes certification that hospital inpatient services are reasonable and necessary and in the case of services not specified as inpatient-only under 42 CFR 419.22(n), that they are appropriately provided as inpatient services in accordance to with the 2-midnight benchmark under 43 CFR 412.3(e) Estimated Total Length of Stay (Days): 2 Plans for Post Hospital Care: Home Review of Systems Review of Systems: all other systems reviewed are negative ON LICENSE OF [facility] Medical History Medical History BPH (benign prostatic hyperplasia) (Acute) History of COPD (Acute) History of high cholesterol (Acute) Hx of diabetes mellitus (Acute) Hx of primary hypertension (Acute) Surgical History Surgical History Hx of tonsillectomy (Acute) Family History Family History Other Family history non-contributory Social History Social History Substance History: No History of Abuse Second Hand Smoke Exposure: No Smoking Status: Former smoker Tobacco Type: Cigarettes How Often Do You Have a Drink Containing Alcohol: Never Recent Travel in [place] within the Last 8 Weeks: No Recent Out of Country Travel within the Last 8 Weeks: No Immunization History Tetanus Immunization: Unsure Hx Influenza Vaccine This Season: Yes Medications and Allergies Allergies Allergy/AdvReac Type Severity Reaction Status Date / Time No Known Allergies Allergy Verified 09/06/18 13:53 Home Medications Medication Instructions Recorded Confirmed Type amlodipine 10 mg PO DAILY 09/06/18 09/06/18 History atenolol 25 mg PO BID 09/06/18 09/06/18 History atorvastatin 10 mg PO DAILY 09/06/18 09/06/18 History beclomethasone dipropionate [Qvar 1 puff INHALATION BID 09/06/18 09/06/18 History RediHaler] doxazosin 4 mg PO DAILY 09/06/18 09/06/18 History hydrochlorothiazide 25 mg PO DAILY 09/06/18 09/06/18 History metformin 1,000 mg PO DAILY 09/06/18 09/06/18 History metformin 500 mg PO QPM 09/06/18 09/06/18 History Active Medications: Active Medications Acetaminophen (Tylenol) 650 mg PO Q4H PRN PRN Reason: Temp > 100.4 Al Hydroxide/Mg Hydroxide (Milk Of Magnvivian Liq) 30 ml PO Q12H PRN PRN Reason: Mild Constipation Albuterol (Ventolin Hfa Inh) 2 puff INH Q4H PRN PRN Reason: SHORTNESS OF BREATH/WHEEZING Albuterol (Duoneb Neb (Flip)) 1 ampul NEB Q6HR WHILE AWAKE NEB [facility] Amlodipine Besylate (Norvasc) 10 mg PO DAILY FLIP Atenolol (Tenormin) 25 mg PO BID [facility] Atorvastatin Calcium (Lipitor) 10 mg PO DAILY [facility] Beclomethasone Dipropionate (Qvar 80 Mcg Inh) 1 puff INH BID [facility] Bisacodyl (Dulcolax Supp) 10 mg RECTAL DAILY PRN PRN Reason: SEVERE CONSITIPATION Dextrose (D50w Vial) 50 ml IV.PUSH UNSCH PRN PRN Reason: PER HYPOGLYCEMIA PROTOCOL Doxazosin Mesylate (Cardura) 4 mg PO DAILY [facility] Glucagon (Glucagon Inj) 1 mg OTHER PRN PRN PRN Reason: for Hypoglycemia Protocol Hydrochlorothiazide (Hydrodiuril) 25 mg PO DAILY FLIP Ceftriaxone Sodium 1,000 mg/ (Sodium Chloride) 100 mls @ 200 mls/hr IV.SIG Q24H FLIP Azithromycin 500 mg/ Sodium (Chloride) 250 mls @ 250 mls/hr IV.SIG Q24H FLIP Sodium Chloride (Ns Inj) 1,000 mls @ 2,000 mls/hr IV.SIG Q30M FLIP Stop: 09/06/18 18:59 Insulin Aspart (Novolog Insulin Correctional Sugar Inj) 0 unit SQ ACHS FLIP; Protocol Lactulose (Lactulose Liq) 30 ml PO DAILY PRN PRN Reason: SEVERE CONSITIPATION Methylprednisolone Sodium Succinate (Solumedrol Inj) 40 mg IV.PUSH Q6H FLIP Ondansetron HCl (Zofran Inj) 4 mg IV.PUSH Q6H PRN PRN Reason: NAUSEA OR VOMITING Sennosides (Senokot) 17.2 mg PO Q12H PRN PRN Reason: Moderate Constipation Sodium Chloride (Ns Flush) 2 ml IV.FLUSH BID FLIP Sodium Chloride (Ns Flush) 2 ml IV.FLUSH PRN PRN PRN Reason: FLUSH AFTER USING IV ACCESS Sodium Chloride (Ns Flush) 2 ml IV.FLUSH BID FLIP Sodium Chloride (Ns Flush) 2 ml IV.FLUSH PRN PRN PRN Reason: FLUSH AFTER USING IV ACCESS Physical Exam Vital signs: Last Vital Signs Temp 96.9 F L 09/06/18 17:54 Pulse 78 09/06/18 17:54 Resp 20 09/06/18 17:54 BP 133/60 09/06/18 17:54 Pulse Ox 96 09/06/18 17:54 Intake & Output 09/04/18 09/05/18 09/06/18 09/07/18 06:59 06:59 06:59 06:59 Intake Total 2074 Balance 2074 Weight 114.8 kg Narrative: GENERAL: Obese, well-developed adult male in no obvious distress. SKIN: Warm and dry. HEAD: Atraumatic. Normocephalic. CARDIOVASCULAR: Regular rate and rhythm. RESPIRATORY:Accessory muscle use. Scattered rhonchi. Breath sounds equal bilaterally. On 2 L nasal cannula GASTROINTESTINAL: Abdomen obese, soft, non-tender, non-distended. Positive bowel sounds. MUSCULOSKELETAL: Bilateral +1 pitting edema to mid olea. Skin thickened and dry. NEUROLOGICAL: Awake and alert. No obvious cranial nerve deficits. Motor grossly within normal limits. Normal speech. PSYCHIATRIC: Appropriate mood and affect; insight and judgment good. Results Labs CBC & Chem 7: 09/06/18 14:10 09/06/18 14:10 Imaging Impressions Chest X-Ray 09/06/18 14:00 CONCLUSION: 1. Bibasilar streakiness is noted consistent with atelectasis/or mild infiltrates.Bibasilar streakiness is noted consistent with atelectasis/or mild infiltrates. 2. Cardiomegaly. Venous Doppler Study 09/06/18 15:10 CONCLUSION: 1. No evidence of DVT. 2. Nonspecific soft mass in the right upper thigh measuring 12.2 x 5.7 cm. This may be a hematoma. Recommend correlation with patient's history and physical exam. Caprini VTE Risk Assessment Caprini VTE Risk Assessment: No/Low Risk (score <= 1) Caprini Risk Assessment Model: Point Value = 1 Point Value = 2 Point Value = 3 Point Value = 5 Age 41-60 Minor surgery BMI > 25 kg/m2 Swollen legs Varicose veins or History of unexplained or recurrent spontaneous Oral contraceptives or hormone replacement Sepsis (< 1 month) Serious lung disease, including pneumonia (< 1 month) Abnormal pulmonary function Acute myocardial infarction Congestive heart failure (< 1 month) History of inflammatory bowel disease Medical patient at bed rest Age 61-74 Arthroscopic surgery Major open surgery (> 45 min) Laparoscopic surgery (> 45 min) Malignancy Confined to bed (> 72 hours) Immobilizing plaster cast Central venous access Age >= 75 History of VTE Family history of VTE Factor V Leiden Prothrombin [id number] Lupus anticoagulant Anticardiolipin antibodies Elevated serum homocysteine Heparin-induced thrombocytopenia Other congenital or acquired thrombophilia Stroke (< 1 month) Elective arthroplasty Hip, pelvis, or leg fracture Acute spinal cord injury (< 1 month) Prophylaxis Regimen: Total Risk Factor Score Risk Level Prophylaxis Regimen 0-1 Low Early ambulation 2 Moderate Order ONE of the following: *Sequential Compression Device (SCD) *Heparin 5000 units SQ BID 3-4 Higher Order ONE of the following medications: *Heparin 5000 units SQ TID *Enoxaparin/Lovenox 40 mg SQ daily (WT < 150 kg, CrCl > 30 mL/min) *Enoxaparin/Lovenox 30 mg SQ daily (WT < 150 kg, CrCl > 10-29 mL/min) *Enoxaparin/Lovenox 30 mg SQ BID (WT < 150 kg, CrCl > 30 mL/min) AND/OR *Sequential Compression Device (SCD) 5 or more Highest Order ONE of the following medications: *Heparin 5000 units SQ TID (Preferred with Epidurals) *Enoxaparin/Lovenox 40 mg SQ daily (WT < 150 kg, CrCl > 30 mL/min) *Enoxaparin/Lovenox 30 mg SQ daily (WT < 150 kg, CrCl > 10-29 mL/min) *Enoxaparin/Lovenox 30 mg SQ BID (WT < 150 kg, CrCl > 30 mL/min) AND *Sequential Compression Device (SCD) Assessment and Plan Plan Patient is an 83-year-old male who presents to the emergency room with a complaint of cough and congestion. Past medical history includes COPD, hyperlipidemia, hypertension, BPH and diabetes. He denies any history of heart disease. Pneumonia Acute hypoxia Sepsis: WBC 17.4, lactic acid 5.9, T96.9, RR 28 (by my count) COPD exacerbation -Titrate O2 to maintain sats above 92% -Cultures pending -DuoNeb's; Solu-Medrol -Ceftriaxone and azithromycin Pulse CHF -BMP WNL Chronic conditions: Hypertension, hyperlipidemia, BPH -Restart home medications as indicated Diabetes -Hold metformin; sliding scale while hospitalized DVT prophylaxis: SCDs
[2018-09-06] MEDS: Insulin NovoLOG Aspart Correctional Sugar Inj SQ SCH ×2 (19:11→20:55)
[2018-09-06] MEDS: Sod Chloride 0.9% Inj 1,000 ML IV.SIG SCH ×2 (19:12→21:33)
[2018-09-06] MEDS: Atenolol 25 MG Tablet PO SCH (20:49)
[2018-09-06] MEDS: MethylPREDNISolone Sod Succinate Inj 40 MG/ML Vial IV.PUSH SCH (20:49)
[2018-09-06] MEDS: Beclomethasone Dipropionate 80 MCG/ACT 10.6 GM Inhaler INH SCH (23:15)
[2018-09-06] MEDS ORDERED: Sod Chloride 0.9% Inj 1,000 ML IV.SIG ONE (23:44)
[2018-09-07] MEDS: Sod Chloride 0.9% Inj 1,000 ML IV.CONT SCH ×2 (00:57→08:46)
[2018-09-07] MEDS: MethylPREDNISolone Sod Succinate Inj 40 MG/ML Vial IV.PUSH SCH ×5 (03:29→22:46)
[2018-09-07 07:18] LABS: Baso % (Auto) 0.1 % (0.0-2.0); Hematocrit 36.6 % (39.0-51.0); Lymph # (Auto) 0.8 th/mm3 (1.0-4.8); Lymph % (Auto) 5.7 % (9.0-44.0); Mean Corpuscular HGB Conc 32.7 % (32.0-36.0); Mean Corpuscular Hemoglobin 27.7 pg (27.0-34.0); Mean Corpuscular Volume 84.5 fL (80.0-100.0); Mono # (Auto) 0.4 th/mm3 (0.0-0.9); Neut # (Auto) 12.1 th/mm3 (1.8-7.7); Neut % (Auto) 91.2 % (16.0-70.0); Platelet Count 148 th/mm3 (150-450); Red Blood Count 4.33 mil/mm3 (4.50-5.90); Red Cell Distribution Width 14.5 % (11.6-17.2); White Blood Count 13.3 th/mm3 (4.0-11.0)
[2018-09-07 07:41] LABS: Alanine Aminotransferase 17 U/L (12-78); Albumin 3.2 g/dL (3.4-5.0); Alkaline Phosphatase 40 U/L (45-117); Anion Gap 8 meq/L (5-15); Aspartate Aminotransferase 9 U/L (15-37); Blood Urea Nitrogen 20 mg/dL (7-18); Calcium 8.1 mg/dL (8.5-10.1); Carbon Dioxide 24.2 meq/L (21.0-32.0); Chloride 108 meq/L (98-107); Glomerular Filtration Rate 79 mL/min (>89); Glucose,Random 226 mg/dL (74-106); Potassium 3.9 meq/L (3.5-5.1); Sodium 140 meq/L (136-145); Total Protein 6.3 g/dL (6.4-8.2)
[2018-09-07] MEDS: Insulin NovoLOG Aspart Correctional Sugar Inj SQ SCH ×4 (08:44→22:42)
[2018-09-07] MEDS: amLODIPine 10 MG Tablet PO SCH (08:45)
[2018-09-07] MEDS: Doxazosin 4 MG Tablet PO SCH (08:45)
[2018-09-07] MEDS: Atenolol 25 MG Tablet PO SCH ×2 (08:45→22:35)
[2018-09-07] MEDS: hydroCHLOROthiazide 25 MG Tablet PO SCH (08:45)
[2018-09-07] MEDS: Beclomethasone Dipropionate 80 MCG/ACT 10.6 GM Inhaler INH SCH ×2 (08:46→22:35)
[2018-09-07] MEDS ORDERED: Azithromycin Inj 500 MG in Sodium Chlor 0.9% Inj 250 ML IV.SIG SCH (16:00)
--- NOTE | 2018-09-07 17:50 | P.PNIM ---
Subjective Interval history: Patient seen sitting up in bed. at bedside. Patient is very anxious to go home and would like to be released. reports that he feels much better. Remains mildly short of breath. No chest pain. No nausea vomiting or diarrhea. Trialed on room air and sats were 90. We will consider discharge tomorrow if improved. Physical Exam Vital signs: Last Vital Signs Temp 96 F L 09/07/18 16:00 Pulse 59 L 09/07/18 16:00 Resp 20 09/07/18 16:00 BP 141/63 H 09/07/18 16:00 Pulse Ox 92 L 09/07/18 16:00 Intake & Output 09/05/18 09/06/18 09/07/18 09/08/18 06:59 06:59 06:59 06:59 Intake Total 5350 / 5350 1600 / 1600 Balance 5350 / 5350 1600 / 1600 Weight 112.9 kg Narrative: GENERAL: Obese, well-developed adult male in no obvious distress. SKIN: Warm and dry. HEAD: Atraumatic. Normocephalic. CARDIOVASCULAR: Regular rate and rhythm. RESPIRATORY:Accessory muscle use. Scattered rhonchi. Breath sounds equal bilaterally. On 2 L nasal cannula GASTROINTESTINAL: Abdomen obese, soft, non-tender, non-distended. Positive bowel sounds. MUSCULOSKELETAL: Bilateral +1 pitting edema to mid olea. Skin thickened and dry. NEUROLOGICAL: Awake and alert. No obvious cranial nerve deficits. Motor grossly within normal limits. Normal speech. PSYCHIATRIC: Appropriate mood and affect; insight and judgment good. Results Labs CBC & Chem 7: 09/07/18 07:08 09/07/18 07:08 Labs: Microbiology 09/06/18 14:10 Blood - Peripheral Aerobic Blood Culture - Preliminary No growth in 1 day 09/06/18 14:10 Blood - Peripheral Anaerobic Blood Culture - Preliminary No growth in 1 day 09/06/18 14:05 Blood - Peripheral Aerobic Blood Culture - Preliminary No growth in 1 day 09/06/18 14:05 Blood - Peripheral Anaerobic Blood Culture - Preliminary No growth in 1 day 09/06/18 14:00 Nasal Wash Influenza Types A,B Antigen - Final Negative for FLU A and B antigen Infection due to influenza A or B cannot be ruled out since the antigen present in the sample may be below the detection limit of the test. Assessment and Plan Plan Patient is an 83-year-old male who presents to the emergency room with a complaint of cough and congestion. Past medical history includes COPD, hyperlipidemia, hypertension, BPH and diabetes. He denies any history of heart disease. Pneumonia Acute hypoxia Sepsis: WBC 17.4, lactic acid 5.9, T96.9, RR 28 (by my count) COPD exacerbation -Titrate O2 to maintain sats above 92% -Cultures no growth to date -DuoNeb's; Solu-Medrol -Ceftriaxone and azithromycin ?CHF -BMP WNL Chronic conditions: Hypertension, hyperlipidemia, BPH -Restart home medications as indicated Diabetes -Hold metformin; sliding scale while hospitalized DVT prophylaxis: SCDs Progress Note: Quality VTE Deep Vein Thrombosis/Pulmonary Embolism Present on Admission: No
--- NOTE | 2018-09-07 19:04 | ECG ---
Date Performed: 09/06/2018 Time Performed: 14:46:21 PTAGE: 83 years EKG: Sinus rhythm MARKED LEFT AXIS DEVIATION PATTERN CONSISTENT WITH PULMONARY DISEASE MODERATE INTRAVENTRICULAR CONDU CTION DELAY NONSPECIFIC T-WAVE ABNORMALITY ABNORMAL ECG PREVIOUS TRACING : 05/10/2017 18.05 Since the previous tracing, no significant change noted DOCTOR: Jeremy Bermudez Interpretating Date/Time 09/07/2018 19:02:56
[2018-09-08] MEDS: MethylPREDNISolone Sod Succinate Inj 40 MG/ML Vial IV.PUSH SCH ×2 (02:04→09:32)
[2018-09-08] MEDS: Insulin NovoLOG Aspart Correctional Sugar Inj SQ SCH ×4 (09:24→21:14)
[2018-09-08] MEDS: Atenolol 25 MG Tablet PO SCH ×2 (09:25→21:13)
[2018-09-08] MEDS: Doxazosin 4 MG Tablet PO SCH (09:25)
[2018-09-08] MEDS: hydroCHLOROthiazide 25 MG Tablet PO SCH (09:25)
[2018-09-08] MEDS: amLODIPine 10 MG Tablet PO SCH (09:25)
[2018-09-08] MEDS: Beclomethasone Dipropionate 80 MCG/ACT 10.6 GM Inhaler INH SCH ×2 (09:27→21:13)
--- NOTE | 2018-09-08 11:28 | P.PNIM ---
Subjective Interval history: Follow-up emergency room at approximately patient seen and examined, patient states he feels stressed out with all the poking and blood draws. During conversation patient becomes very winded and using accessory muscles. Patient is requesting to be discharged. Patient is definitely not ready to be discharged today. Will change management manager antibiotics and steroids to p.o. Continue close monitoring as well as duo nebs and inhalers. Physical Exam Vital signs: Vital Signs 09/07/18 12:00 09/07/18 12:55 09/07/18 16:00 Temperature 96.4 F L 96 F L Pulse Rate 63 63 59 L Respiratory Rate 20 18 20 Blood Pressure 131/63 141/63 H Pulse Oximetry 92 L 92 L 09/07/18 19:40 09/07/18 19:47 09/07/18 20:00 Temperature 96.1 F L Pulse Rate 57 L 62 Respiratory Rate 22 23 Blood Pressure 136/67 Pulse Oximetry 90 L 93 L 92 L 09/08/18 00:00 09/08/18 07:00 09/08/18 08:00 Temperature 96.5 F L 98.5 F Pulse Rate 55 L 63 71 Respiratory Rate 24 24 22 Blood Pressure 144/72 H 162/67 H Pulse Oximetry 92 L 93 L Intake & Output 09/07/18 09/08/18 09/08/18 18:59 06:59 18:59 Intake Total 2810 / 2810 Balance 2810 / 2810 Intake: IV 1850 / 1850 NS Inj 1,000 ML @ 125 mls/hr IV 1500 / 1500 .CONT .Q8H [facility] Rx#:[id number] Azithromycin Inj 500 MG In NS 250 / 250 Inj 250 ML @ 250 mls/hr IV.SIG Q24H [facility] Rx#:[id number] Rocephin Inj 1,000 MG In NS Inj 100 / 100 100 ML @ 200 mls/hr IV.SIG Q24H [facility] Rx#:[id number] Oral 960 / 960 Other: # Voids 4 # Bowel Movements 2 Narrative: GENERAL: Obese, well-developed adult male in no obvious distress. SKIN: Warm and dry. HEAD: Atraumatic. Normocephalic. CARDIOVASCULAR: Regular rate and rhythm. RESPIRATORY: Accessory muscle use. Scattered rhonchi. Breath sounds equal bilaterally. GASTROINTESTINAL: Abdomen obese, soft, non-tender, non-distended. Positive bowel sounds. MUSCULOSKELETAL: Bilateral +1 pitting edema to mid olea. Skin thickened and dry. NEUROLOGICAL: Awake and alert. No obvious cranial nerve deficits. Motor grossly within normal limits. Normal speech. PSYCHIATRIC: Appropriate mood and affect; insight and judgment good. Results - Labs CBC & Chem 7: 09/07/18 07:08 09/07/18 07:08 Laboratory Results - last 24 hr 09/07/18 09/07/18 09/07/18 11:30 16:48 22:37 POC Glucose 230 H 225 H 294 H 09/08/18 07:35 POC Glucose 191 H Microbiology 09/06/18 14:10 Blood - Peripheral Aerobic Blood Culture - Preliminary No growth in 2 days 09/06/18 14:10 Blood - Peripheral Anaerobic Blood Culture - Preliminary No growth in 2 days 09/06/18 14:05 Blood - Peripheral Aerobic Blood Culture - Preliminary No growth in 2 days 09/06/18 14:05 Blood - Peripheral Anaerobic Blood Culture - Preliminary No growth in 2 days Assessment and Plan - Assessment (1) Acute exacerbation of chronic obstructive pulmonary disease (COPD) Code(s): J44.1 - Chronic obstructive pulmonary disease with (acute) exacerbation Status: Acute (2) Pneumonia Code(s): J18.9 - Pneumonia, unspecified organism Status: Acute - Plan Patient is an 83-year-old male who presents to the emergency room with a complaint of cough and congestion. Past medical history includes COPD, hyperlipidemia, hypertension, BPH and diabetes. He denies any history of heart disease. Sepsis COPD with exacerbation Pneumonia Acute hypoxia with need for supplemental O2 Met criteria with WBC 17.4, lactic acid 5.9, T96.9 -Titrate O2 to maintain sats above 92%, currently on 2 LNC. -Cultures no growth to date, continue to follow. -Continue Duonebs. -Change IV steroids to PO. -Change IV abx to PO Levaquin. -Await for clinical improvement. Chronic conditions include hypertension, hyperlipidemia, BPH -Restart home medications as indicated Diabetes -Hold metformin; sliding scale while hospitalized. Monitor blood sugar trends. DVT prophylaxis: SCDs (2) Pneumonia Qualifiers: Pneumonia type: due to unspecified organism Laterality: unspecified laterality
[2018-09-08] MEDS ORDERED: predniSONE 20 MG Tablet PO ONE (12:00)
[2018-09-08] MEDS: levoFLOXacin 750 MG Tablet PO SCH (12:23)
[2018-09-08] MEDS: predniSONE 20 MG Tablet PO SCH (21:13)
[2018-09-09] MEDS: Beclomethasone Dipropionate 80 MCG/ACT 10.6 GM Inhaler INH SCH (08:42)
[2018-09-09] MEDS: hydroCHLOROthiazide 25 MG Tablet PO SCH (08:43)
[2018-09-09] MEDS: levoFLOXacin 750 MG Tablet PO SCH (08:43)
[2018-09-09] MEDS: predniSONE 20 MG Tablet PO SCH (08:43)
[2018-09-09] MEDS: amLODIPine 10 MG Tablet PO SCH (08:43)
[2018-09-09] MEDS: Insulin NovoLOG Aspart Correctional Sugar Inj SQ SCH ×2 (08:43→13:01)
[2018-09-09] MEDS: Doxazosin 4 MG Tablet PO SCH (08:43)
[2018-09-09] MEDS: Atenolol 25 MG Tablet PO SCH (08:43)
--- NOTE | 2018-09-09 11:15 | P.DS ---
Date of admission: 09/06/18 15:18 Primary care physician: Ariana Arias MD Brief History from admission: Patient is an 83-year-old male who presents to the emergency room with a complaint of cough and congestion. Past medical history includes COPD, hyperlipidemia, hypertension, BPH and diabetes. He denies any history of heart disease. He cannot tell me what medications he takes -tells me he takes whatever pills his puts in the box. He does have an additional complaint of swelling in his legs that is been going on for about 6 months. No specific calf pain or other leg pain. He is a former smoker. Has had past admissions for COPD. Says he was on inhalers in the past but he stopped using them because they gave him cramps. His doctor has recently given him new ones but he has not really started using them. Patient tells me that his current shortness of breath is worse than usual. He denies any chest pain. Thinks he might of had a fever at home. No nausea vomiting or diarrhea. Has had an intermittent cough with some sputum production. Patient update on day of discharge: Patient seen and examined follow-up COPD pneumonia. Patient is walking the room , walk test is negative. His oxygen sats are 92%. He feels much improved. Wheezing is improved. Coughing has diminished. Continue antibiotics and steroids on discharge. Follow-up with PCP Elliot stable. Afebrile. DS: Diagnosis - Discharge Diagnosis (1) Acute exacerbation of chronic obstructive pulmonary disease (COPD) Status: Acute (2) Pneumonia Status: Acute DS: Summary Hospital Course: Patient is an 83-year-old male who presents to the emergency room with a complaint of cough and congestion. Past medical history includes COPD, hyperlipidemia, hypertension, BPH and diabetes. He denies any history of heart disease. Admitted with severe sepsis secondary to pneumonia and COPD exacerbation, criteria with white blood cell 17.4, lactic acid 5.9 and temperature 96.9. Cultures no growth to date, continue to follow. Change IV steroids to p.o., continue Levaquin and discharge. Patient is stable. Follow- up PCP. Rx is written. Diet as tolerated. Activity as tolerated. Patient stable this time and agreeable to plan. Chronic conditions include hypertension , hyperlipidemia BPH, home medications were restarted. Patient with diabetes, will resume metformin. Blood sugars controlled. - Time Spent with Patient Total time spent providing and/or coordinating discharge services: Greater than 30 minutes - Quality: VTE Deep Vein Thrombosis/Pulmonary Embolism Present on Admission: No Exam Vital signs: Vital Signs 09/08/18 12:00 09/08/18 13:52 09/08/18 13:53 Temperature 98.8 F Pulse Rate 56 L 53 L Respiratory Rate 22 22 Blood Pressure 131/61 Pulse Oximetry 90 L 96 09/08/18 16:00 09/08/18 19:47 09/08/18 19:53 Temperature 98.3 F 98.4 F Pulse Rate 54 L 65 58 L Respiratory Rate 22 16 22 Blood Pressure 152/70 H 152/77 H Pulse Oximetry 92 L 94 L 94 L 09/09/18 00:00 09/09/18 07:32 09/09/18 08:00 Temperature 99.4 F 96.7 F L Pulse Rate 58 L 60 84 Respiratory Rate 16 18 18 Blood Pressure 160/75 H 173/70 H Pulse Oximetry 93 L 95 95 Intake & Output 09/08/18 09/09/18 09/09/18 18:59 06:59 18:59 Intake Total 750 / 750 480 / 480 Balance 750 / 750 480 / 480 Weight 116.1 kg Intake: Oral 750 / 750 480 / 480 Other: # Voids 6 3 # Bowel Movements 1 Narrative: GENERAL: Obese, well-developed adult male in no obvious distress. SKIN: Warm and dry. HEAD: Atraumatic. Normocephalic. CARDIOVASCULAR: Regular rate and rhythm. RESPIRATORY: Accessory muscle use. Scattered rhonchi. Breath sounds equal bilaterally. GASTROINTESTINAL: Abdomen obese, soft, non-tender, non-distended. Positive bowel sounds. MUSCULOSKELETAL: Bilateral +1 pitting edema to mid olea. Skin thickened and dry. NEUROLOGICAL: Awake and alert. No obvious cranial nerve deficits. Motor grossly within normal limits. Normal speech. PSYCHIATRIC: Appropriate mood and affect; insight and judgment good. Results Procedures completed during hospitalization: See above. Labs on day of discharge: Labs from last 24 hours 09/09/18 09/08/18 09/08/18 07:35 21:00 16:07 POC Glucose 197 H 273 H 212 H 09/08/18 11:18 POC Glucose 222 H Preliminary micro results at discharge 09/06/18 14:10 Aerobic Blood Culture - Preliminary Blood - Peripheral No growth in 3 days Anaerobic Blood Culture - Preliminary No growth in 3 days 09/06/18 14:05 Aerobic Blood Culture - Preliminary Blood - Peripheral No growth in 3 days Anaerobic Blood Culture - Preliminary No growth in 3 days - Impressions ITS Impressions Chest X-Ray 09/06/18 14:00 CONCLUSION: 1. Bibasilar streakiness is noted consistent with atelectasis/or mild infiltrates.Bibasilar streakiness is noted consistent with atelectasis/or mild infiltrates. 2. Cardiomegaly. Venous Doppler Study 09/06/18 15:10 CONCLUSION: 1. No evidence of DVT. 2. Nonspecific soft mass in the right upper thigh measuring 12.2 x 5.7 cm. This may be a hematoma. Recommend correlation with patient's history and physical exam. Discharge Plan - Discharge Disposition Patient Disposition: 01 Discharge Home - Discharge Condition Condition: Stable - Discharge Order Discharge Orders: Discharge Order (Routine); Ordered 09/09/18 Ordered By: Janice García - Discharge Details Anticipated Discharge Date: 09/09/18 - Physicians Team Primary Care Provider: Ariana Arias Attending Provider: Brandon Scott
== END 2018-09-09 13:01 | disposition home or self-care (01) | DRG 871 ==
LOC: PHED 13:41 → PHEDA 15:18 → PH3 16:47
PROVIDERS: ADMIT Internal Medicine; ATTEND Internal Medicine
CPT/HCPCS: 71010; 71045; 80053; 82948; 82962; 83520; 83605; 83880; 84484; 85025; 87040; 87275; 87276; 87804; 90765; 90775; 93005; 93970; 94640; 94664; 94665; 96365; 96375; 97161; 99285; J0456; J0696; J1815; J2920; J2930; J7030; J7050; J7506; J7512